=== PATIENT | female | born 1965 | race Native Hawaiian/Other Pacific Islander ===

== ENCOUNTER 2019-01-18 10:13 | Outpatient (CLI) | payer BC | END 2019-01-18 22:38 | disposition home or self-care (01) | LOC: US 10:13 | DX: M79.89 Other specified soft tissue disorders (principal) ==

== ENCOUNTER 2019-03-24 13:39 | Outpatient (CLI) | payer BC | END 2019-03-24 22:00 | disposition home or self-care (01) | LOC: US 13:39 | DX: M79.89 Other specified soft tissue disorders (principal) ==